=== PATIENT | male | born 1975 | race Caucasian/White ===

== ENCOUNTER 2023-04-09 13:32 | Emergency (ER) | payer OTHER, SELFPAY ==
[2023-04-09 13:43] VITALS: BP 156/91; PULSE 68; RESP 18; O2SAT 98; BMI 31.3
--- NOTE | 2023-04-09 13:49 | ED.ABDPAIN1 ---
HPI - Abdominal Pain General Chief Complaint: Abdominal Pain Stated Complaint: abdominal pain Time Seen by Provider: 04/09/23 13:49 Source: patient Mode of arrival: walk-in Limitations: no limitations History of Present Illness HPI narrative: Patient presents to emergency department complaining of left upper quadrant pain. Patient states he has had intermittent pain for over a week. He states he is concerned that it could be his pancreas as his had an issue with that in the past. Patient states he is to take omeprazole but has not taking it recently. He had a colonoscopy and an endoscopy done when he was 40.He denies any fever, chills, or cough. He denies any chest, shortness of breath. He denies any nausea, vomiting, diarrhea, or constipation. He denies any flank pain, hematuria, dysuria. He states he is not here to receive anything for pain. He just wants to know what is wrong. He denies any trauma. He denies any sore throat. Related Data Home Medications Medication Instructions Recorded Confirmed carvedilol 12.5 mg tablet 12.5 mg PO Q12H 04/09/23 04/09/23 hyoscyamine sulfate 0.125 mg 0.125 mg PO Q6H PRN dyspepsia 04/09/23 04/09/23 sublingual tablet levothyroxine 200 mcg tablet 200 mcg PO DAILY 04/09/23 04/09/23 liothyronine 5 mcg tablet 5 mcg PO DAILY 04/09/23 04/09/23 omeprazole 40 mg capsule,delayed 40 mg PO DAILY 04/09/23 04/09/23 release Previous Rx's Medication Instructions Recorded sucralfate 1 gram tablet (Carafate) 1 g PO TID 4 weeks #84 tabs 04/09/23 Allergies Allergy/AdvReac Type Severity Reaction Status Date / Time No Known Drug Allergies Allergy Verified 04/09/23 13:45 Review of Systems ROS Status of ROS 10 or more systems reviewed and unremarkable except as noted in history and below [facility] Social History Smoking status: Former smoker Exam Narrative Exam Narrative: Nurses notes and vital signs reviewed and patient is not hypoxic. General: Nontoxic, Well-appearing and in no apparent distress. Skin: Warm, dry, no pallor noted. No Rash Head: Normocephalic, atraumatic. Neck: Supple, non-tender. Eye: Pupils are equal, round and EOMI. No scleral icterus. Ears, Nose, Mouth, and Throat: TM clear, no posterior oropharynx erythema or nasal mucosal hypertrophy, uvula is mid-line Oral mucosa is moist Cardiovascular: Regular Rate and Rhythm without murmur, gallop or rub. Respiratory: No accessory muscle use or respiratory distress. Lungs are clear to auscultation, no wheezing, rales or rhonchi Chest Wall: no tenderness Back: No midline thoracic or lumbar vertebral tenderness. No CVA tenderness Musculoskeletal: normal ROM, no calf or popliteal tenderness, no lower extremity edema/swelling GI: Abdomen is soft, non-distended. Normal bowel sounds. Mild left upper quadrant tenderness to palpation. No rebound, guarding, or rigidity noted. Neurological: A&O x4. No cranial nerve dysfunction observed. No truncal ataxia. Moves all extremities. Sensation intact. Psychiatric: Cooperative and interactive. Normal mood and affect. Constitutional Vital Signs, click to edit/add: Last Vital Signs Pulse 64 04/09/23 16:42 Resp 18 04/09/23 16:42 BP 149/95 H 04/09/23 16:42 Pulse Ox 98 04/09/23 16:42 O2 Del Method Room Air 04/09/23 16:42 Course Vital Signs Vital signs: Vital Signs Pulse Rate 68 04/09/23 13:43 Respiratory Rate 18 04/09/23 13:43 Blood Pressure 156/91 H 04/09/23 13:43 Pulse Oximetry 98 04/09/23 13:43 Oxygen Delivery Method Room Air 04/09/23 13:43 Pulse Rate 64 04/09/23 16:42 Respiratory Rate 18 04/09/23 16:42 Blood Pressure 149/95 H 04/09/23 16:42 Pulse Oximetry 98 04/09/23 16:42 Oxygen Delivery Method Room Air 04/09/23 16:42 MDM - Abdominal Pain MDM Narrative Medical decision making narrative: Patient's abdomen is benign and nonsurgical. Labs studies are unremarkable. Patient was given Carafate. All results discussed with patient. 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 At this time the patient is without objective evidence of an acute process requiring hospitalization or inpatient management. The patient has remained hemodynamically stable. No additional indication for emergent studies at this time. I answered all questions. Discussed discharge instructions including standard anticipatory guidance and what should prompt a return to the emergency department, including if they get worse are not getting better or develops any new or concerning symptoms. I've given them specific time frame in which to follow-up, and who to follow-up with. The patient demonstrates understanding. Patient is nontoxic and stable for discharge with outpatient follow-up. This note was created with the assistance of a speech recognition program. Although the intention is to generate documents that actually reflects the content of the visit, no guarantees can be provided that every mistake has been identified and corrected by editing. Lab Data Attestation: I reviewed the patient's lab results. Labs: Lab Results 04/09/23 04/09/23 04/09/23 Range/Units 14:00 14:24 16:00 WBC 7.6 (4.0-11.0) 10^3/uL RBC 4.91 (4.70-6.10) 10^6/uL Hgb 15.3 (14.0-18.0) g/dL Hct 45.9 (42.0-54.0) % MCV 93.5 (80.0-94.0) fL MCH 31.2 (25.9-34.0) pg MCHC 33.3 (29.9-35.2) g/dL RDW 14.2 (11.0-15.0) % Plt Count 201 (150-450) 10^3/uL MPV 10.7 (9.5-13.5) fL Neut % (Auto) 38.4 L (43.0-75.0) % Lymph % (Auto) 39.5 (20.5-60.0) % [place] % (Auto) 12.0 (1.7-12.0) % Eos % (Auto) 7.3 H (0.9-7.0) % Baso % (Auto) 0.8 (0.2-2.0) % Neut # (Auto) 2.9 (1.4-6.5) 10^3/uL Lymph # (Auto) 3.0 (1.2-3.8) 10^3/uL [place] # (Auto) 0.9 H (0.3-0.8) 10^3/uL Eos # (Auto) 0.6 (0.0-0.7) 10^3/uL Baso # (Auto) 0.1 (0.0-0.1) 10^3/uL Abs Immat Gran (auto) 0.15 H (0.00-0.03) 10^3/uL Imm/Tot Granulo (auto) 2.0 H (0.0-0.5) % Sodium 139 (136-145) mmol/L Potassium 3.7 (3.5-5.1) mmol/L Chloride 103 (98-107) mmol/L Carbon Dioxide 27.6 (21.0-32.0) mmol/L Anion Gap 12.1 BUN 7.0 (7.0-18.0) mg/dL Creatinine 0.94 (0.70-1.30) mg/dL Est GFR ( Amer) >60 (>=60) Est GFR (Non-Af Amer) >60 (>=60) BUN/Creatinine Ratio 7.4 Glucose 92 (74-106) mg/dL Lactate 0.8 (0.4-2.0) mmol/L Calcium 7.5 L (8.5-10.1) mg/dL Total Bilirubin 0.3 (0.2-1.0) mg/dL Direct Bilirubin 0.1 (0.0-0.2) mg/dL AST 18 (15-37) U/L ALT 27 (16-63) U/L Alkaline Phosphatase 65 (46-116) U/L Total Protein 6.6 (6.4-8.2) g/dL Albumin 3.3 L (3.4-5.0) g/dL Globulin 3.3 g/dL Albumin/Globulin Ratio 1.0 Lipase 77.0 (73.0-393.0) U/L Urine Color Lt. yellow (YELLOW) Urine Clarity Clear (CLEAR) Urine pH 7.5 (5.0-9.0) Ur Specific [place] 1.015 (1.005-1.025) Urine Protein Negative (NEG/TRACE) mg/dL Urine Glucose (UA) Negative (NEGATIVE) mg/dL Urine Ketones Negative (NEGATIVE) mg/dL Urine Occult Blood Negative (NEGATIVE) Urine Nitrite Negative (NEGATIVE) Urine Bilirubin Negative (NEGATIVE) Urine Urobilinogen 0.2 (0.2-1.0) EU/dL Ur Leukocyte Esterase Negative (NEGATIVE) Discharge Plan Discharge Chief Complaint: Abdominal Pain Clinical Impression: Abdominal pain Patient Disposition: Home, Self-Care Time of Disposition Decision: 16:24 Condition: Good Mode of Transportation: Private Vehicle Prescriptions / Home Meds: New sucralfate [Carafate] 1 gram tablet 1 g PO TID 28 Days Qty: 84 0RF No Action carvedilol 12.5 mg tablet 12.5 mg PO Q12H hyoscyamine sulfate 0.125 mg tablet, sublingual 0.125 mg PO Q6H PRN (Reason: dyspepsia) levothyroxine 200 mcg tablet 200 mcg PO DAILY liothyronine 5 mcg tablet 5 mcg PO DAILY omeprazole 40 mg capsule,delayed release(DR/EC) 40 mg PO DAILY Instructions: Abdominal Pain (ED) Stand Alone Forms: Portal Instructions Referrals: Reynold Cespedes MD [Primary Care Provider] - 1 week Discharge Date/Time: 04/09/23 16:44
[2023-04-09 14:26] LABS: Basophils Absolute Auto 0.1 10^3/uL (0.0-0.1); Basophils Percent Auto 0.8 % (0.2-2.0); Eosinophils Absolute Auto 0.6 10^3/uL (0.0-0.7); Eosinophils Percent Auto 7.3 % (0.9-7.0); Hematocrit 45.9 % (42.0-54.0); Hemoglobin 15.3 g/dL (14.0-18.0); Immature Granulocytes Abs Auto 0.15 10^3/uL (0.00-0.03); Lymphocytes Percent Auto 39.5 % (20.5-60.0); Mean Corpuscular HGB Conc 33.3 g/dL (29.9-35.2); Mean Corpuscular Hemoglobin 31.2 pg (25.9-34.0); Mean Corpuscular Volume 93.5 fL (80.0-94.0); Mean Platelet Volume 10.7 fL (9.5-13.5); Monocytes Absolute Auto 0.9 10^3/uL (0.3-0.8); Neutrophils Absolute Auto 2.9 10^3/uL (1.4-6.5); Neutrophils Percent Auto 38.4 % (43.0-75.0); Platelet Count 201 10^3/uL (150-450); Red Blood Count 4.91 10^6/uL (4.70-6.10); Red Cell Distribution Width 14.2 % (11.0-15.0); White Blood Count 7.6 10^3/uL (4.0-11.0)
[2023-04-09 14:37] LABS: Alanine Aminotransferase 27 U/L (16-63); Albumin Level 3.3 g/dL (3.4-5.0); Alkaline Phosphatase 65 U/L (46-116); Anion Gap 12.1; Aspartate Amino Transferase 18 U/L (15-37); BUN Creatinine Ratio 7.4; Bilirubin Direct 0.1 mg/dL (0.0-0.2); Bilirubin Total 0.3 mg/dL (0.2-1.0); Calcium 7.5 mg/dL (8.5-10.1); Carbon Dioxide 27.6 mmol/L (21.0-32.0); Chloride 103 mmol/L (98-107); Estimated GFR (African America >60 (>=60); Estimated GFR (Non-African Ame >60 (>=60); Globulin 3.3 g/dL; Glucose 92 mg/dL (74-106); Potassium 3.7 mmol/L (3.5-5.1); Sodium 139 mmol/L (136-145); Total Protein 6.6 g/dL (6.4-8.2)
[2023-04-09 15:08] LABS: Lactate/Lactic Acid 0.8 mmol/L (0.4-2.0)
--- NOTE | 2023-04-09 15:09 | XR_ITS ---
[address] [address] Patient Name: MITCHELL Elder SUNDAY MRN: [id number] date: 1975 Sex: M Assigned Patient Location: ER Current Patient Location: ER Accession/Order Number: [id number] Exam Date: 04/09/2023 15:02 Report Date: 04/09/2023 15:24 At the request of: MARY NICHOLAS Procedure: XR acute abdomen series EXAMINATION: XR acute abdomen series HISTORY: luq pain , acute epigastric pain COMPARISON: No relevant comparison available. FINDINGS: LUNGS: No infiltrate, pneumothorax, or pleural effusion. MEDIASTINUM: No abnormal widening. BOWEL GAS PATTERN: Non-obstructed. No abnormal dilation or suspicious fluid levels. Moderate stool burden. FREE AIR: None. CALCIFICATIONS: None significant. BONES: No fracture or visible bone lesion. Intervertebral disc spacers L4 on 5, L5-S1. OTHER: Negative. XR/XR acute abdomen series IMPRESSION: 1. No acute cardiopulmonary process. 2. Normal bowel gas pattern. Electronically authenticated by: CHARMAINE BRUCE Date: 04/09/2023 15:24
[2023-04-09 15:11] VITALS: BP 153/83; PULSE 63; RESP 18; O2SAT 97
[2023-04-09 16:22] LABS: Bilirubin Urine NEGATIVE (NEGATIVE); Blood Urine NEGATIVE (NEGATIVE); Clarity Urine CLEAR (CLEAR); Color Urine LT. YELLOW (YELLOW); Glucose Urine UA NEGATIVE (NEGATIVE); Ketones Urine NEGATIVE (NEGATIVE); Leukocyte Esterase Urine NEGATIVE (NEGATIVE); Nitrite Urine NEGATIVE (NEGATIVE); Protein Urine NEGATIVE (NEG/TRACE); Specific Gravity Urine 1.015 (1.005-1.025); Urobilinogen Urine 0.2 EU/dL (0.2-1.0); pH Urine 7.5 (5.0-9.0)
[2023-04-09 16:23] LABS: Urine Microscopic Indicated NO
[2023-04-09 16:42] VITALS: BP 149/95; PULSE 64; RESP 18; O2SAT 98
== END 2023-04-09 16:44 | disposition home or self-care (01) ==
PROVIDERS: Emergency Provider Emergency Medicine; PCP Family Medicine
DX: R10.9 Unspecified abdominal pain (principal); Z79.899 Other long term (current) drug therapy; Z79.890 Hormone replacement therapy; Z87.891 Personal history of nicotine dependence
CPT/HCPCS: 36415; 74022; 80053; 80076; 81003; 82248; 83605; 83690; 85025; 99284

== ENCOUNTER 2025-02-22 06:10 | Emergency (ER) | payer OTHER, SELFPAY ==
[2025-02-22 06:14] VITALS: BP 144/93; PULSE 82; TEMP 36.7; O2SAT 98; BMI 29.8
[2025-02-22 06:20] VITALS: BP 140/93
--- NOTE | 2025-02-22 06:43 | ED.EAR1 ---
HPI - Ear Problem General Chief complaint: Ear Stated complaint: ear pain Time Seen by Provider: 02/22/25 06:29 Source: patient Mode of arrival: walk-in History of Present Illness HPI Narrative: cc - pain right ear canal and right jaw Pt developed a small pimple a couple of days ago that drained clear fluid. The next day it was draining yellowish fluid and the right external ear canal became swollen and painful. No the pain and swelling extends into the right jaw/lateral lower right cheek. No systemic symptoms such as fever or vomiting. He took tylenol this morning for the pain. Related Data Home Medications ?Medication ?Instructions ?Recorded ?Confirmed carvedilol 12.5 mg tablet 12.5 mg PO Q12H 04/09/23 02/22/25 levothyroxine 200 mcg tablet 200 mcg PO DAILY 04/09/23 02/22/25 Previous Rx's ?Medication ?Instructions ?Recorded cephalexin 500 mg capsule 500 mg PO QID 7 days #28 caps 02/22/25 ciprofloxacin HCl 500 mg tablet 500 mg PO BID #14 tabs 02/22/25 (Cipro) Allergies Allergy/AdvReac Type Severity Reaction Status Date / Time No Known Drug Allergies Allergy Verified 02/22/25 06:14 PFSH PFSH Social History Smoking status: Former smoker Little interest or pleasure in doing things: not at all Feeling down, depressed, or hopeless: not at all Exam Narrative Exam Narrative: Nurses notes and vital signs reviewed and patient is not hypoxic. afebrile General: Well-appearing and in no apparent distress. Skin: Warm, dry, no pallor noted. No rash. Head: Tenderness and swelling to the right lower lateral cheek/jaw without erythema or palpable abscess. Remainder of the face is normocephalic, atraumatic. Neck: Supple, non-tender. Mild, tender right submandibular lymphadenopathy Eye: Pupils are equal, round and EOMI. No scleral icterus. Ears, Nose, Mouth, and Throat: Right EAC is occluded due to swelling of the soft tissue -TM cannot be visualized. No posterior oropharynx erythema, no nasal mucosal hypertrophy, uvula is mid-line. Oral mucosa is moist Cardiovascular: Regular Rate and Rhythm without murmur, gallop or rub. Respiratory: No accessory muscle use or respiratory distress. Lungs are clear to auscultation, no wheezing, rales or rhonchi Musculoskeletal: normal ROM Neurological: A&O x4. No cranial nerve dysfunction observed. No truncal ataxia. Moves all extremities. Sensation intact. Psychiatric: Cooperative and interactive. Normal mood and affect. Constitutional Vital Signs, click to edit/add: Last Vital Signs Temp 98.0 F 02/22/25 06:14 Pulse 82 02/22/25 06:14 Resp 20 02/22/25 06:14 BP 140/93 H 02/22/25 06:20 Pulse Ox 98 02/22/25 06:14 O2 Del Method Room Air 02/22/25 06:14 Course Vital Signs Vital signs: Vital Signs Temperature 98.0 F 02/22/25 06:14 Pulse Rate 82 02/22/25 06:14 Respiratory Rate 20 02/22/25 06:14 Blood Pressure 144/93 H 02/22/25 06:14 Pulse Oximetry 98 02/22/25 06:14 Oxygen Delivery Method Room Air 02/22/25 06:14 Temperature 98.0 F 02/22/25 06:14 Pulse Rate 82 02/22/25 06:14 Respiratory Rate 02/22/25 06:14 Blood Pressure 140/93 H 02/22/25 06:20 Pulse Oximetry 98 02/22/25 06:14 Oxygen Delivery Method Room Air 02/22/25 06:14 Medical Decision Making MDM Narrative Medical decision making narrative: Pt with cellulitis of the right EAC now extending into the right lateral and lower cheek jaw. To cover for early malignant otitis externa and cellulitis of the right jaw/cheek - will aggressively cover with both cipro and keflex. Pt dc'd home with Rxs sent to his pharmacy of choice for pickup when they open this morning. Discharge Plan Discharge Chief Complaint: Ear Clinical Impression: Cellulitis of right ear canal, Otitis externa Patient Disposition: Home, Self-Care Time of Disposition Decision: 06:41 Prescriptions / Home Meds: New ciprofloxacin HCl [Cipro] 500 mg tablet 500 mg PO BID Qty: 14 0RF cephalexin 500 mg capsule 500 mg PO QID 7 Days Qty: 28 0RF No Action carvedilol 12.5 mg tablet 12.5 mg PO Q12H levothyroxine 200 mcg tablet 200 mcg PO DAILY Print Language: Pashto Instructions: Cellulitis (ED) Referrals: Reynold Cespedes MD [Primary Care Provider, Family Practice] - 1 week
== END 2025-02-22 06:54 | disposition home or self-care (01) ==
PROVIDERS: Emergency Provider Emergency Medicine; PCP Family Medicine
DX: H60.11 Cellulitis of right external ear (principal); Z87.891 Personal history of nicotine dependence
CPT/HCPCS: 99283